=== PATIENT | male | born 1985 | race Hispanic/Latino ===

== ENCOUNTER 2022-12-28 15:17 | Emergency (ER) | payer OTHER ==
[~2022-12-28] VITALS: Ht 172.7 cm; Wt 104.3 kg
[2022-12-28 16:15] VITALS: BP 123/78; PULSE 81; RESP 16; O2SAT 96
== END 2022-12-28 20:09 | disposition home or self-care (01) ==
LOC: EDH 15:17
DX: M79.651 Pain in right thigh (principal)
CPT/HCPCS: 93971